=== PATIENT | male | born 1995 | race Two or more races ===

== ENCOUNTER 2021-01-22 15:06 | Emergency (ER) | payer MEDICAID ==
[~2021-01-22] VITALS: Ht 195.6 cm; Wt 63.6 kg
[2021-01-22 15:30] VITALS: BP 108/73
[2021-01-22] MEDS ORDERED: DOXYCYCLINE HYCLATE 100MG CAPSULE PO ONE (16:15)
[2021-01-22] MEDS ORDERED: LIDOCAINE HCL 1% 20ML VIAL (Pyxis) INJ INFIL ONE (16:15)
[2021-01-22] MEDS ORDERED: CEFTRIAXONE SODIUM 500 MG/VIAL IM ONE (16:15)
[2021-01-22] MEDS ORDERED: LIDOCAINE HCL 1% 10 MG/ML 10ML VIAL INJ NR (16:30)
[2021-01-22 16:51] LABS: CLARITY URINE CLEAR (CLEAR); COLOR URINE YELLOW (YELLOW); KETONES URINE NEGATIVE (NEGATIVE); LEUKOCYTE ESTERASE URINE NEGATIVE (NEGATIVE); NITRITE URINE NEGATIVE (NEGATIVE); OCCULT BLOOD URINE NEGATIVE (NEGATIVE); PROTEIN URINE NEGATIVE (NEGATIVE); SPECIFIC GRAVITY URINE 1.012 (1.005-1.030)
[2021-01-22] MEDS ORDERED: DOXY100T2 MT (17:13)
[2021-01-25 05:11] LABS: NEISSERIA GONORRHOEAE NAA Negative (Negative)
== END 2021-01-22 17:54 | disposition home or self-care (01) ==
LOC: EDSEX 15:06 → ER 15:06
DX: N48.5 Ulcer of penis (principal); R30.0 Dysuria; Z20.2 Contact with and (suspected) exposure to infections with a predominantly sexual mode of transmission; F12.10 Cannabis abuse, uncomplicated
CPT/HCPCS: 81003; 86592; 86593; 86780; 87491; 87591; 96372; 99283; J0696; J3490

== ENCOUNTER 2021-03-28 01:20 | Emergency (ER) | payer MEDICAID ==
[~2021-03-28] VITALS: Ht 195.6 cm; Wt 60.0 kg
[~2021-03-28 01:20] MED LIST: DOXY100T2 MT
[2021-03-28 02:05] VITALS: BP 143/77
== END 2021-03-28 02:46 | disposition home or self-care (01) ==
LOC: ER 01:20 → EDSEX 01:20 → ER 02:46
DX: Z20.822 Contact with and (suspected) exposure to COVID-19 (principal)
CPT/HCPCS: 87426; 99283

== ENCOUNTER 2021-04-11 17:02 | Emergency (ER) | payer MEDICAID ==
[~2021-04-11] VITALS: Ht 195.6 cm; Wt 63.0 kg
[2021-04-11] MEDS ORDERED: POLY10DR LEFTEYE (17:31)
[2021-04-11 17:41] VITALS: BP 127/89
== END 2021-04-11 17:42 | disposition home or self-care (01) ==
LOC: ER 17:02
DX: H10.32 Unspecified acute conjunctivitis, left eye (principal); Z86.16 Personal history of COVID-19
CPT/HCPCS: 99283

== ENCOUNTER 2021-04-14 16:31 | Emergency (ER) | payer MEDICAID ==
[~2021-04-14] VITALS: Ht 195.6 cm; Wt 63.5 kg
[~2021-04-14 16:31] MED LIST changes: +POLY10DR LEFTEYE
[2021-04-14 16:52] VITALS: BP 131/72
== END 2021-04-14 20:08 | disposition left against medical advice (07) ==
LOC: ER 16:31
DX: Z53.21 Procedure and treatment not carried out due to patient leaving prior to being seen by health care provider (principal)

== ENCOUNTER 2021-12-26 20:06 | Emergency (ER) | payer MEDICAID ==
[~2021-12-26] VITALS: Ht 195.6 cm; Wt 64.0 kg
[2021-12-27] MEDS ORDERED: SODIUM CHLORIDE 0.9% 1,000 ML IV ONE
[2021-12-27] MEDS ORDERED: KETOROLAC 30MG/ML VIAL IV ONE
[2021-12-27] MEDS ORDERED: ONDANSETRON HCL 4MG/2ML INJ IV ONE
[2021-12-27 00:17] LABS: HEMATOCRIT. 34.8 % (36.0-48.0); HEMOGLOBIN. 11.2 g/dL (12.0-16.0); MEAN CORPUSCULAR HEMOGLOBIN 18.7 pg (28.0-32.0); MEAN PLATELET VOLUME 9.1 fl (7.4-10.4); PLATELET 126 x1000/uL (130-400)
[2021-12-27 00:29] LABS: CHLORIDE 104 mEq/L (98-107)
[2021-12-27] MEDS ORDERED: IOHEXOL-300 100 ML BOTTLE ONE (02:18)
[2021-12-27] MEDS ORDERED: FAMOTIDINE 20MG/2ML VIAL IV ONE (02:30)
[2021-12-27] MEDS ORDERED: SODIUM CHLORIDE 0.9% 500 ML IV NR (03:00)
[2021-12-27 03:31] LABS: PLATELET ESTIMATE DECREASED
[2021-12-27] MEDS ORDERED: DOXY100C5 MT (03:57)
[2021-12-27 04:00] VITALS: BP 101/55
[2021-12-27] MEDS ORDERED: CEFTRIAXONE 500 MG in DEXTROSE 5% WATER 25 ML IV ONE (04:00)
[2021-12-27] MEDS ORDERED: FAMOTIDINE 20MG/2ML VIAL IV NR (04:15)
[2021-12-27] MEDS ORDERED: CEFTRIAXONE 500 MG in DEXTROSE 5% WATER 25 ML IV NR (04:15)
[2021-12-27] MEDS ORDERED: CEFTRIAXONE 500 MG in DEXTROSE 5% WATER 50 ML IV NR (04:16)
== END 2021-12-27 04:35 | disposition home or self-care (01) ==
LOC: ER 20:06
DX: K92.1 Melena (principal); F12.10 Cannabis abuse, uncomplicated
CPT/HCPCS: 36415; 74177; 80053; 83605; 83690; 85025; 96361; 96365; 96375; 99285; J0696; J1885; J2405; J7030; J7060; Q9967